=== PATIENT | female | born 1985 | race Caucasian/White ===

== ENCOUNTER 2017-01-08 05:23 | Inpatient (IN) | payer OTHER ==
--- NOTE | 2017-01-04 11:32 | PCM.LDHP ---
L&D History of Present Illness - General Date of Service: 01/08/17 Admit Problem/Dx: Admission Diagnosis/Problem Admission Diagnosis/Problem 01/04/17 11:16 39-0/7 week intrauterine , history previous section with desire for repeat section Source of Information: Patient History Limitations: Reports: No Limitations - History of Present Illness Introduction:: Penny is a 31-year-old 3 para 2002 white female who is admitted for elective repeat section. The procedure, risks, benefits, alternatives of care including attempted her all discussed in detail with the patient. She appears to understand, wishes to proceed and has signed the consent. 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 This is supported by ultrasound done on 05/29/2016 and again on 09/07/2016. Her previous obstetric history shows menarche at 9, cycles q. 28 days, duration approximately 5 days. Not on any control at the time conception. LMP 04/10. Previous deliveries include a male infant born 07/21/2012 at 41 weeks gestational age after 10 hours of labor. 6 lbs. 11 oz. born via primary section done for failure to progress. Child's name is Raghav. Second baby was born on 11/12/2014 at 40-1/7 weeks gestational age after 7 hours of labor-8 lbs. 2 oz.-female-vaginal after section. [facility]. Child's name is a Bozena Martínez. Patient's course has been relatively unremarkable. She had her first visit on 06/27/2016 at 11 weeks and 1 day. She had regular visits and showed good fundal height growth. Her weight increased from 171.8 pounds at first visit to 190 pounds at last visit for approximately an 18 pound weight gain. Her vital signs were stable throughout the course. Patient declined STD testing. She declined that Tdap. She has mild thyroid enlargement. She is heterozygous for him THFR gene mutation. Had RhoGAM given at the end of second trimester, specifically 10/24/2016. laboratory testing: Blood is a negative with positive antibody screen secondary to passive antibody secondary to RhoGAM administered early in . She had a platelet count of first visit of 206. Pap smear was normal. She is rubella immune. Free T4 was normal at 1.21 and free T3 was normal at 3.4 a. TSH was normal at 0.309. Free T4 on 10/23/2016 was normal at 1.04 and free T3 is normal at 2.93. Patient had a negative group B strep screen. Allergies: Adhesive tape Indications: 1. Diclegis 10-10 mg oral tablets delayed release 2. Vitamin C oral tablets chewable-1 daily 3. Probiotic oral capsule one daily 4. CVS 28-0.8 mg oral tablets-daily 5. B6 100 mg oral tablet daily 6. Digestive enzymes daily 7. Iron tablets 325 mg ferrous sulfate-daily 8. Vitamin D liquid 500 international units daily 9. Magnesium tablets 1 tablet daily Past medical history: 1. Vaginal after section 2. Goiter with abnormal TSH 3. Hiatal hernia 4. depression history 5. MTHFR defect Past surgical history: 1. in 2011 2. Was G. extraction 2002 3. Lymphectomy 2010 Family history: maternal grandmother and one sister with thalassemia. No anesthesia, bleeding, blood clot in her problems her related regarding her family history. Social history: Patient is , lives in [place], is self-employed. is [place]. She does not use any significant loss of alcohol, drugs or tobacco. Review of systems: Skin-no lesions HEENT-no concerns Lungs-no complaints Cardiovascular-no chest pain, shortness of breath or exercise intolerance Breasts-changes consistent with GI-appetite and no problems, takes digestive enzymes -changes associated with Neuro-no concerns Musculoskeletal-minimal swelling with . Physical exam: In general the patient is a well-developed, well-nourished pleasant female stated age in no acute distress. On last evaluation in clinic her weight was 190 pounds an increased approximately 18 pounds since the first visit. Blood pressure is 106/53. Height was 5 feet 9 inches. Skin is warm and dry without lesions. HEENT, neck and back are within normal limits Lungs are clear with good breath sounds in all lung jenkins. Cardiovascular exam shows regular rate and rhythm. Breast exam is deferred, was done at first visit of the normal. Patient has nursed in the past and desires to nurse this . Abdomen is protuberant the . Fundal height is 38 cm, baby in vertex presentation. Cervical exam shows 2+ centimeters, 80% effaced, soft, midposition, -3 station, cephalic presentation. Extremities and neurological exam are within normal limits. No significant edema is noted at this time. - Related Data Allergies/Adverse Reactions: Allergies Allergy/AdvReac Type Severity Reaction Status Date / Time No Known Allergies Allergy Verified 11/12/14 11:13 Home Medications: Home Meds Benzocaine/Menthol [Dermoplast Pain Relief [place]] 1 applic TOP ASDIRECTED PRN # 30 canister 11/14/14 [Rx] Docusate Sodium [Colace] 100 mg PO BID PRN #20 cap 11/14/14 [Rx] Ibuprofen [Motrin] 600 mg PO Q4H PRN #30 tablet 11/14/14 [Rx] Lanolin [Lansinoh HPA] 1 applic TOP ASDIRECTED PRN #30 crm 11/14/14 [Rx] Witch Dayana [Tucks] 1 pad TOP ASDIRECTED PRN #30 pad 11/14/14 [Rx] Social & Family History - Tobacco Use Smoking Status *Q: Never Smoker - Recreational Drug Use Recreational Drug Use: No H&P Review of Systems - Review of Systems: Review Of Systems: See Below L&D Exam - Exam Exam: See Below - Vital Signs Weight: 92.986 kg Problem List Initiated/Reviewed/Updated: Yes Assessment/Plan Comment:: Assessment: 1. Term intrauterine at 39-0/7 weeks, history of previous section with desire for repeat section 2. Group B strep screen negative 3. Patient plans to nurse 4. MTHFR positive 5. History of depression with previous 6. History of goiter, or function studies within normal limits on last evaluation Plan: 1. Repeat lower uterine segment transverse section through Pfannenstiel skin incision under spinal block. Procedure, risks, benefits, alternatives of care including attempt at all discussed the patient. She appears to understand, wishes to proceed. She signed consent. Surgery is scheduled for 01/08/[address] [facility] 2. DVT prophylaxis with SCDs 3. Infection prophylaxis with Ancef 2 g IV preop 4. Routine preoperative labs including CBC, urinalysis, type and screen.
[2017-01-08] MEDS ORDERED: Metoclopramide 10 MG/2 ML SDV IVPUSH ONE (05:51)
[2017-01-08] MEDS ORDERED: Sodium Chloride 0.9% 10 ML Syringe FLUSH PRN (05:51)
[2017-01-08] MEDS ORDERED: Citric Acid/Sodium Citrate Solution 30 ML Cup PO ONE (05:51)
[2017-01-08] MEDS: Lactated Ringers 1,000 ML IV SCH ×2 (06:09→06:47)
[2017-01-08] MEDS ORDERED: Bupivacaine 0.5% 30 ML SDV ONE (06:31)
[2017-01-08] MEDS ORDERED: Ondansetron 4 MG/2 ML SDV ONE (06:39)
[2017-01-08] MEDS ORDERED: Ketorolac 30 MG/ML SDV ONE (06:39)
[2017-01-08] MEDS ORDERED: Phenylephrine/Normal Saline 100 MCG/ML 10 ML Syringe ONE (06:39)
[2017-01-08] MEDS ORDERED: ceFAZolin 1 GM Vial ONE (06:39)
[2017-01-08] MEDS ORDERED: Morphine PF 10 MG/10 ML SDV ONE (06:41)
--- NOTE | 2017-01-08 06:56 | PCM.PREANE ---
Preanesthetic Assessment - Anesthesia/Transfusion/Family Hx Anesthesia History: Prior Anesthesia Without Reaction Family History of Anesthesia Reaction: No Transfusion History: No Prior Transfusion(s) - Review of Systems General: No Symptoms Pulmonary: No Symptoms Cardiovascular: Palpitations (related to thyroid issues ) Gastrointestinal: Other (hiatal hernia, GERD ) Neurological: Other (13 Ora migraines during controled with tylenol and caffeine ) Other: Reports: None, Thyroid Problems (hyperthyroidism during , hashimotos when not ) - Physical Assessment NPO Status Date: 01/07/17 NPO Status Time: 22:00 O2 Sat by Pulse Oximetry: 96 Respiratory Rate: 18 Vital Signs: Last Vital Signs Temp 36.9 C 01/08/17 05:37 Pulse 83 01/08/17 05:37 Resp 18 01/08/17 05:37 BP 105/73 01/08/17 05:37 Pulse Ox 96 01/08/17 05:37 Height: 1.75 m Weight: 86.183 kg ASA Class: 2 Mental Status: Alert & Oriented x3 Airway Class: Mallampati = 2 Dentition: Reports: Normal Dentition Thyro-Mental Finger Breadths: 3 Mouth Opening Finger Breadths: 3 ROM/Head Extension: Full Lungs: Clear to auscultation, Normal respiratory effort Cardiovascular: Regular Rate, Regular Rhythm - Lab Values: Laboratory Last Values WBC 8.86 K/mm3 (3.98-10.04) 01/08/17 05:45 RBC 4.08 M/mm3 (3.98-5.22) 01/08/17 05:45 Hgb 11.6 gm/L (11.2-15.7) 01/08/17 05:45 Hct 35.4 % (34.1-44.9) 01/08/17 05:45 MCV 86.8 fl (79.4-94.8) 01/08/17 05:45 MCH 28.4 pg (25.6-32.2) 01/08/17 05:45 MCHC 32.8 g/dl (32.2-35.5) 01/08/17 05:45 RDW Std Deviation 41.3 fL (36.4-46.3) 01/08/17 05:45 Plt Count 157 K/mm3 (182-369) L 01/08/17 05:45 MPV 11.2 fl (9.4-12.3) 01/08/17 05:45 Neut % (Auto) 68.8 % (34.0-71.1) 01/08/17 05:45 Lymph % (Auto) 23.4 % (19.3-51.7) 01/08/17 05:45 [place] % (Auto) 5.9 % (4.7-12.5) 01/08/17 05:45 Eos % (Auto) 1.2 (0.7-5.8) 01/08/17 05:45 Baso % (Auto) 0.2 % (0.1-1.2) 01/08/17 05:45 Neut # (Auto) 6.10 K/mm3 (1.56-6.13) 01/08/17 05:45 Lymph # (Auto) 2.07 K/mm3 (1.18-3.74) 01/08/17 05:45 [place] # (Auto) 0.52 K/mm3 (0.24-0.36) H 01/08/17 05:45 Eos # (Auto) 0.11 K/mm3 (0.04-0.36) 01/08/17 05:45 Baso # (Auto) 0.02 K/mm3 (0.01-0.08) 01/08/17 05:45 Blood Type A NEGATIVE 01/08/17 05:45 - Allergies Allergies/Adverse Reactions: Allergies Allergy/AdvReac Type Severity Reaction Status Date / Time adhesive tape Allergy Rash Verified 01/08/17 05:55 - Blood Blood Available: No Product(s) Available: None - Anesthesia Plan Pre-Op Medication Ordered: None - Acknowledgements Anesthesia Type Planned: Spinal (with duramorph ) Pt an Appropriate Candidate for the Planned Anesthesia: Yes Alternatives and Risks of Anesthesia Discussed w Pt/Guardian: Yes Pt/Guardian Understands and Agrees with Anesthesia Plan: Yes PreAnesthesia Questionnaire Cardiovascular History: Reports: None Respiratory History: Reports: None Gastrointestinal History: Reports: Hiatal Hernia 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: , Other (See Below) Other OB/BYN History: hx of section/ Neurological History: Reports: Migraines Psychiatric History: Reports: Other (See Below) Other Psychiatric History: depression with first Endocrine/Metabolic History: Reports: Other (See Below) Other Endocrine/Metabolic History: abnormal tsh, goiter - SUBSTANCE USE Smoking Status *Q: Never Smoker Second Hand Smoke Exposure: No Recreational Drug Use History: No - HOME MEDS Home Medications: Home Meds Ferrous Sulfate [Iron] 325 mg PO DAILY 01/08/17 [History] Magnesium 200 mg PO DAILY 01/08/17 [History] PNV95/Ferrous Fumarate/FA [ Vitamin Tablet] 1 tab PO DAILY 01/08/17 [ History] - CURRENT (IN HOUSE) MEDS Current Meds: Current Medications Lactated Ringer's (Ringers, Lactated) 1,000 mls @ 125 mls/hr IV ASDIRECTED RUFINO Last Admin: 01/08/17 06:47 Dose: 125 mls/hr Oxytocin/Lactated Ringer's (Pitocin In Lr 10 Units/1,000 Ml) 10 unit in 1,000 mls @ 100 mls/hr IV ASDIRECTED [facility] Cefazolin Sodium/Dextrose 2 gm (/ Premix) 50 mls @ 100 mls/hr IV ONETIME ONE Stop: 01/08/17 08:29 Sodium Chloride (Saline Flush) 10 ml FLUSH ASDIRECTED PRN PRN Reason: Keep Vein Open Discontinued Medications Bupivacaine HCl (Marcaine 0.5%) Confirm Administered Dose 30 ml .ROUTE .STK-MED ONE Stop: 01/08/17 06:32 Cefazolin Sodium (Ancef) Confirm Administered Dose 2 gm .ROUTE .STK-MED ONE Stop: 01/08/17 06:40 Citric Acid/Sodium Citrate (Bicitra Solution) 30 ml PO ONETIME ONE Stop: 01/08/17 05:52 Ketorolac Tromethamine (Toradol) Confirm Administered Dose 30 mg .ROUTE .STK- MED ONE Stop: 01/08/17 06:40 Metoclopramide HCl (Reglan) 10 mg IVPUSH ONETIME ONE Stop: 01/08/17 05:52 Morphine Sulfate (Duramorph Pf) Confirm Administered Dose 10 mg .ROUTE .STK-MED ONE Stop: 01/08/17 06:42 Ondansetron HCl (Zofran) Confirm Administered Dose 4 mg .ROUTE .STK-MED ONE Stop: 01/08/17 06:40 Phenylephrine HCl (Phenylephrine In Ns 100 Mcg/Ml) Confirm Administered Dose 1 mg .ROUTE .STK-MED ONE Stop: 01/08/17 06:40
[2017-01-08] MEDS ORDERED: Lanolin 100% Cream 7 GM Tube TOP PRN (07:43)
[2017-01-08] MEDS ORDERED: diphenhydrAMINE 50 MG/ML SDV IVPUSH PRN ×2 (07:43→08:48)
[2017-01-08] MEDS ORDERED: Ondansetron 4 MG/2 ML SDV IV PRN (07:43)
[2017-01-08] MEDS ORDERED: ePHEDrine 50 MG/ML SDV IVPUSH PRN (07:43)
[2017-01-08] MEDS ORDERED: Naloxone 0.4 MG/ML SDV IVPUSH PRN (07:43)
[2017-01-08] MEDS ORDERED: Dextrose 5%-Lactated Ringers 1,000 ML IV SCH (07:45)
[2017-01-08] MEDS ORDERED: Dextrose 5%-0.45% NaCl 1,000 ML IV SCH (07:45)
[2017-01-08] MEDS ORDERED: Oxytocin/Lactated Ringers 10 UNIT/1,000 ML BAG IV SCH (08:00)
[2017-01-08] MEDS ORDERED: ceFAZolin 2 GM in Premix Bag 1 BAG IV ONE (08:00)
[2017-01-08] MEDS ORDERED: Lactated Ringers 1,000 ML ONE ×2 (08:38)
[2017-01-08] MEDS ORDERED: Meperidine PF 50 MG/ML Syringe IVPUSH PRN (08:48)
[2017-01-08] MEDS ORDERED: Ondansetron 4 MG/2 ML SDV IVPUSH PRN (08:48)
--- NOTE | 2017-01-08 08:50 | PCM.OPNOTE ---
- General Post-Op/Procedure Note Date of Surgery/Procedure: 01/08/17 Operative Procedure(s): repeat lower uterine segment transverse section through Pfannenstiel skin incision Findings: minimal scarring from the anterior abdominal wall to the anterior uterus from previous section. Uterus tubes and ovaries otherwise were consistent with normal term . Is in a vertex presentation, amniotic fluid was clear. Lower uterine segment was thick and normal in appearance. The baby was a male born at 0807 hours. scores were 8 and 9. Weight was 7 lbs. 0 oz. There was a nuchal cord x2 with 1 Loop underneath the baby's right arm. Pre Op Diagnosis: 39 week intrauterine , history of previous sections desire for repeat sec Post-Op Diagnosis: Same with delivery of a 7 lbs. 0 oz. male infant Apgars of 8 and 9 at 0807 hours on 01/08/2017 Anesthesia Technique: Spinal Other Anesthesia Type: local with Marcaine 0.5%-20 cc Primary Surgeon: Leonid Mata Secondary Surgeon: Luke Guan Anesthesia Provider: Garo Flanagan Fluid Replacement, Intraop: 1,500 Output, Urine Amount: 150 EBL in mLs: 600 Drain/Tube Comments:: indwelling bladder catheter Complications: None Condition: Good Free Text/Narrative:: Intake & Output 01/07/17 01/08/17 01/08/17 22:59 06:59 14:59 Intake Total 1000 Balance 1000 surgery duration: 28 minutes Complications: None Procedure: Patient was transferred the room and placed in a sitting position. Spinal anesthesia was administered. After adequate anesthesia patient was placed in a supine position with a wedge under her right side to facilitate left lateral positioning. The patient was prepped and draped in usual fashion after Francisco catheter was placed. The anesthetic was checked and found to be adequate. Marcaine 0.5%-20 cc was infiltrated into the section incision site. The Pfannenstiel skin incision was then made carried down to skin subcutaneous and fascial layers. The fascia was then undermined superiorly and inferiorly to allow for adequate operating room. The recti muscles were midline and preperitoneal fat was bluntly dissected. Peritoneal cavity was entered longitudinally. The vesicouterine peritoneum was then incised transversely and bladder flap was developed. Myometrium was incised transversely to the level of the amniotic sac. This incision was extended bilaterally in a blunt fashion. The amniotic sac was then ruptured resulting clear amniotic fluid. A hand is placed into the lower uterine segment and the baby's head was brought forth through the incision. The baby was completely delivered using with fundal pressure in a routine fashion. The nose and mouth were bulb suctioned. Baby's cord was clamped x2 cut and baby was handed off to attending outreach rep Dr. BUTLER. Placenta was expressed after cord blood was obtained. Uterus was then exteriorized to allow for easier closure. a left sided anterior uterine adhesions noted attached to the anterior abdominal wall. This was cauterized and taken down. No bowel or other vital structures were called with this adhesion.The cervix was assessed and found to be dilated adequately to allow egress of blood. The uterus was closed in 2 layers. The first layer a running locked suture of 0 Monocryl, the second layer a running locked vertical mattress suture of 0 Monocryl. additional blocks type stitch was placed an incision for hemostasis. Hemostasis confirmed at this time. Sponge, instrument, needle counts are correct. The uterus was returned to the abdominal cavity and lateral gutters were cleared of blood. Once again sponge, needle counts are correct. The anterior abdominal wall was closed with a #1 PDS suture from angle to angle. The subcutaneous area was found to be free of any bleeders. Skin was closed with a running subcuticular stitch of 3-0 Monocryl in a vertical mattress suture fashion using a Golden needle. It was further approximated Prineo mesh and glue. It should be noted that patient received 2 g of Ancef preoperatively for infection prophylaxis and had Pitocin infused after delivery of the placenta to facilitate uterine contraction. She also had sequential compression stockings in place for DVT prophylaxis.
--- NOTE | 2017-01-08 08:51 | PCM.POSTAN ---
POST ANESTHESIA ASSESSMENT - MENTAL STATUS Mental Status: alert, oriented - VITAL SIGNS Pulse Rate: 74 SaO2: 100 Resp Rate: 19 Blood Pressure: 108/59 Temperature: 35.9 C - RESPIRATORY Respiratory Status: respiratory rate WNL, airway patent, O2 saturation stable - CARDIOVASCULAR CV Status: pulse rate WNL, blood pressure stable - GASTROINTESTINAL GI Status: no symptoms - PAIN Pain Score: 0 - POST OP HYDRATION Hydration Status: adequate & stable
[2017-01-08] MEDS: Simethicone 80 MG Tab.Chew PO SCH ×3 (14:47→18:43)
[2017-01-08] MEDS: Ibuprofen 800 MG Tab PO PRN (14:47)
[2017-01-08] MEDS: Prenatal Multivitamin with Calcium/Folic Acid/Iron Tab PO SCH (14:47)
[2017-01-09] MEDS: Ibuprofen 800 MG Tab PO PRN ×3 (00:45→20:28)
[2017-01-09] MEDS: Simethicone 80 MG Tab.Chew PO SCH ×5 (00:48→23:59)
[2017-01-09] MEDS: Acetaminophen/oxyCODONE 325-5 MG Tab PO PRN ×4 (05:25→23:59)
--- NOTE | 2017-01-09 07:20 | PCM48HPAN ---
Post Anesthesia Note - EVALUATION WITHIN 48HRS OF ANESTHETIC Vital Signs in Normal Range: Yes Patient Participated in Evaluation: Yes Respiratory Function Stable: Yes Airway Patent: Yes Cardiovascular Function Stable: Yes Hydration Status Stable: Yes Pain Control Satisfactory: Yes Nausea and Vomiting Control Satisfactory: Yes Mental Status Recovered: Yes
[2017-01-09] MEDS: Docusate Sodium 100 MG Cap PO PRN ×2 (08:06→20:28)
[2017-01-09] MEDS: Prenatal Multivitamin with Calcium/Folic Acid/Iron Tab PO SCH (08:07)
--- NOTE | 2017-01-09 11:44 | PCM.SN ---
- Free Text/Narrative Note: Ramya has no complaints today. She is ambulating well, is voiding without concerns. She has minimal lochia. She is using Percocet and ibuprofen for pain. She is tolerating her diet well. Patient is afebrile, vital signs stable. Lungs are clear with good breath sounds in all jenkins. Abdomen is flat soft, nontender, without masses. Incision healing well. Legs nontender. CBC shows a hemoglobin to be mildly decreased with white count and platelets normal. Findings consistent with timeframe Assessment: Postoperative day one status post [id number] well. Plan: Increase diet, activity and otherwise routine care.
[2017-01-10] MEDS: Ibuprofen 800 MG Tab PO PRN ×3 (04:30→20:45)
[2017-01-10] MEDS: Prenatal Multivitamin with Calcium/Folic Acid/Iron Tab PO SCH ×2 (08:42→08:44)
[2017-01-10] MEDS: Simethicone 80 MG Tab.Chew PO SCH ×3 (08:42→18:55)
[2017-01-10] MEDS: Docusate Sodium 100 MG Cap PO PRN ×2 (08:42→20:50)
[2017-01-10] MEDS: Acetaminophen/oxyCODONE 325-5 MG Tab PO PRN ×3 (08:42→18:55)
--- NOTE | 2017-01-10 10:59 | PCM.SN ---
- Free Text/Narrative Note: The patient is doing well today. Nursing was going on, lochia is minimal and patient ambulate well. Voiding without problems. Patient is afebrile, vital signs stable. Abdomen is flat, soft, nontender. The incision appears to be dry and intact. Legs nontender. Assessment: Post operative date 2-normal recovery Plan: Routine postoperative care, home tomorrow.
[2017-01-11] MEDS: Acetaminophen/oxyCODONE 325-5 MG Tab PO PRN ×2 (00:19→13:24)
[2017-01-11] MEDS: Simethicone 80 MG Tab.Chew PO SCH ×3 (00:19→13:24)
--- NOTE | 2017-01-11 09:02 | PCM.DCSUM1 ---
Discharge Summary - Hospital Course Free Text/Narrative:: [facility], [place] [facility] Post-Op/Procedure Note Patient Name: JO CHRISTY Date of : 81 Patient Status: Inpatient Attending Provider: Leonid Mata Date: 01/08/17 08:44 Initialization Date: 01/08/17 08:44 - General Post-Op/Procedure Note Date of Surgery/Procedure: 01/08/17 Operative Procedure(s): repeat lower uterine segment transverse section through Pfannenstiel skin incision Findings: minimal scarring from the anterior abdominal wall to the anterior uterus from previous section. Uterus tubes and ovaries otherwise were consistent with normal term . Is in a vertex presentation, amniotic fluid was clear. Lower uterine segment was thick and normal in appearance. The baby was a male born at 0807 hours. scores were 8 and 9. Weight was 7 lbs. 0 oz. There was a nuchal cord x2 with 1 Loop underneath the baby's right arm. Pre Op Diagnosis: 39 week intrauterine , history of previous sections desire for repeat sec Post-Op Diagnosis: Same with delivery of a 7 lbs. 0 oz. male Apgars of 8 and 9 at 0807 hours on 01/08/2017 Anesthesia Technique: Spinal Other Anesthesia Type: local with Marcaine 0.5%-20 cc Primary Surgeon: Leonid Mata Secondary Surgeon: Luke Guan Anesthesia Provider: Garo Flanagan Fluid Replacement, Intraop: 1,500 Output, Urine Amount: 150 EBL in mLs: 600 Drain/Tube Comments:: indwelling bladder catheter Complications: None Condition: Good Free Text/Narrative:: Intake & Output 01/07/17 01/08/17 01/08/17 22:59 06:59 14:59 Intake Total 1000 Balance 1000 surgery duration: 28 minutes Complications: None Procedure: Patient was transferred the room and placed in a sitting position. Spinal anesthesia was administered. After adequate anesthesia patient was placed in a supine position with a wedge under her right side to facilitate left lateral positioning. The patient was prepped and draped in usual fashion after Francisco catheter was placed. The anesthetic was checked and found to be adequate. Marcaine 0.5%-20 cc was infiltrated into the section incision site. The Pfannenstiel skin incision was then made carried down to skin subcutaneous and fascial layers. The fascia was then undermined superiorly and inferiorly to allow for adequate operating room. The recti muscles were midline and preperitoneal fat was bluntly dissected. Peritoneal cavity was entered longitudinally. The vesicouterine peritoneum was then incised transversely and bladder flap was developed. Myometrium was incised transversely to the level of the amniotic sac. This incision was extended bilaterally in a blunt fashion. The amniotic sac was then ruptured resulting clear amniotic fluid. A hand is placed into the lower uterine segment and the baby's head was brought forth through the incision. The baby was completely delivered using with fundal pressure in a routine fashion. The nose and mouth were bulb suctioned. Baby's cord was clamped x2 cut and baby was handed off to attending agricultural equipment operator Dr. BUTLER. Placenta was expressed after cord blood was obtained. Uterus was then exteriorized to allow for easier closure. a left sided anterior uterine adhesions noted attached to the anterior abdominal wall. This was cauterized and taken down. No bowel or other vital structures were called with this adhesion.The cervix was assessed and found to be dilated adequately to allow egress of blood. The uterus was closed in 2 layers. The first layer a running locked suture of 0 Monocryl, the second layer a running locked vertical mattress suture of 0 Monocryl. additional blocks type stitch was placed an incision for hemostasis. Hemostasis confirmed at this time. Sponge, instrument, needle counts are correct. The uterus was returned to the abdominal cavity and lateral gutters were cleared of blood. Once again sponge, needle counts are correct. The anterior abdominal wall was closed with a #1 PDS suture from angle to angle. The subcutaneous area was found to be free of any bleeders. Skin was closed with a running subcuticular stitch of 3-0 Monocryl in a vertical mattress suture fashion using a Golden needle. It was further approximated Prineo mesh and glue. It should be noted that patient received 2 g of Ancef preoperatively for infection prophylaxis and had Pitocin infused after delivery of the placenta to facilitate uterine contraction. She also had sequential compression stockings in place for DVT prophylaxis. HPI Initial Comments: [facility], [place] [facility] Post-Op/Procedure Note Patient Name: JO CHRISTY Date of : 81 Patient Status: Inpatient Attending Provider: Leonid Mata Date: 01/08/17 08:44 Initialization Date: 01/08/17 08:44 - General Post-Op/Procedure Note Date of Surgery/Procedure: 01/08/17 Operative Procedure(s): repeat lower uterine segment transverse section through Pfannenstiel skin incision Findings: minimal scarring from the anterior abdominal wall to the anterior uterus from previous section. Uterus tubes and ovaries otherwise were consistent with normal term . Is in a vertex presentation, amniotic fluid was clear. Lower uterine segment was thick and normal in appearance. The baby was a male born at 0807 hours. scores were 8 and 9. Weight was 7 lbs. 0 oz. There was a nuchal cord x2 with 1 Loop underneath the baby's right arm. Pre Op Diagnosis: 39 week intrauterine , history of previous sections desire for repeat sec Post-Op Diagnosis: Same with delivery of a 7 lbs. 0 oz. male Apgars of 8 and 9 at 0807 hours on 01/08/2017 Anesthesia Technique: Spinal Other Anesthesia Type: local with Marcaine 0.5%-20 cc Primary Surgeon: Leonid Mata Secondary Surgeon: Luke Guan Anesthesia Provider: Garo Flanagan Fluid Replacement, Intraop: 1,500 Output, Urine Amount: 150 EBL in mLs: 600 Drain/Tube Comments:: indwelling bladder catheter Complications: None Condition: Good Free Text/Narrative:: Intake & Output 01/07/17 01/08/17 01/08/17 22:59 06:59 14:59 Intake Total 1000 Balance 1000 surgery duration: 28 minutes Complications: None Procedure: Patient was transferred the room and placed in a sitting position. Spinal anesthesia was administered. After adequate anesthesia patient was placed in a supine position with a wedge under her right side to facilitate left lateral positioning. The patient was prepped and draped in usual fashion after Francisco catheter was placed. The anesthetic was checked and found to be adequate. Marcaine 0.5%-20 cc was infiltrated into the section incision site. The Pfannenstiel skin incision was then made carried down to skin subcutaneous and fascial layers. The fascia was then undermined superiorly and inferiorly to allow for adequate operating room. The recti muscles were midline and preperitoneal fat was bluntly dissected. Peritoneal cavity was entered longitudinally. The vesicouterine peritoneum was then incised transversely and bladder flap was developed. Myometrium was incised transversely to the level of the amniotic sac. This incision was extended bilaterally in a blunt fashion. The amniotic sac was then ruptured resulting clear amniotic fluid. A hand is placed into the lower uterine segment and the baby's head was brought forth through the incision. The baby was completely delivered using with fundal pressure in a routine fashion. The nose and mouth were bulb suctioned. Baby's cord was clamped x2 cut and baby was handed off to attending agricultural equipment operator Dr. BUTLER. Placenta was expressed after cord blood was obtained. Uterus was then exteriorized to allow for easier closure. a left sided anterior uterine adhesions noted attached to the anterior abdominal wall. This was cauterized and taken down. No bowel or other vital structures were called with this adhesion.The cervix was assessed and found to be dilated adequately to allow egress of blood. The uterus was closed in 2 layers. The first layer a running locked suture of 0 Monocryl, the second layer a running locked vertical mattress suture of 0 Monocryl. additional blocks type stitch was placed an incision for hemostasis. Hemostasis confirmed at this time. Sponge, instrument, needle counts are correct. The uterus was returned to the abdominal cavity and lateral gutters were cleared of blood. Once again sponge, needle counts are correct. The anterior abdominal wall was closed with a #1 PDS suture from angle to angle. The subcutaneous area was found to be free of any bleeders. Skin was closed with a running subcuticular stitch of 3-0 Monocryl in a vertical mattress suture fashion using a Golden needle. It was further approximated Prineo mesh and glue. It should be noted that patient received 2 g of Ancef preoperatively for infection prophylaxis and had Pitocin infused after delivery of the placenta to facilitate uterine contraction. She also had sequential compression stockings in place for DVT prophylaxis. Brief History: [facility], [place] [facility] . Post-Op/Procedure Note. Patient Name: JO CHRISTYMDedical Record Number: [id number]. Date of : Patient Status: Inpatient. Attending Provider: Leonid Mata Number : [id number]. Date: 01/08/17 08:44Initialization Date: 01/08/17 08:44. - General Post-Op/Procedure Note. Date of Surgery/Procedure: 01/08/17. Operative Procedure(s): repeat lower uterine segment transverse section through Pfannenstiel skin incision. Findings: minimal scarring from the anterior abdominal wall to the anterior uterus from previous section. Uterus tubes and ovaries otherwise were consistent with normal term . Is in a vertex presentation, amniotic fluid was clear. Lower uterine segment was thick and normal in appearance. The baby was a male born at 0807 hours. scores were 8 and 9. Weight was 7 lbs. 0 oz. There was a nuchal cord x2 with 1 Loop underneath the baby's right arm. Pre Op Diagnosis: 39 week intrauterine , history of previous sections desire for repeat sec. Post-Op Diagnosis: Same with delivery of a 7 lbs. 0 oz. male infant Apgars of 8 and 9 at 0807 hours on 01/08/2017. Anesthesia Technique: Spinal. Other Anesthesia Type: local with Marcaine 0.5%-20 cc. Primary Surgeon: Leonid Mata. Secondary Surgeon: Luke Guan. Anesthesia Provider: Garo Flanagan. Fluid Replacement, Intraop: 1,500. Output, Urine Amount: 150. EBL in mLs: 600. Drain/Tube Comments:: indwelling bladder catheter. Complications: None. Condition: Good. Free Text/Narrative: : Intake & Output. 01/07/1705. [id number]. Intake [id number]. [id number]. surgery duration: 28 minutes. Complications: None. Procedure: Patient was transferred the room and placed in a sitting position. Spinal anesthesia was administered. After adequate anesthesia patient was placed in a supine position with a wedge under her right side to facilitate left lateral positioning. The patient was prepped and draped in usual fashion after Francisco catheter was placed. The anesthetic was checked and found to be adequate. Marcaine 0.5%-20 cc was infiltrated into the section incision site. The Pfannenstiel skin incision was then made carried down to skin subcutaneous and fascial layers. The fascia was then undermined superiorly and inferiorly to allow for adequate operating room. The recti muscles were midline and preperitoneal fat was bluntly dissected. Peritoneal cavity was entered longitudinally. The vesicouterine peritoneum was then incised transversely and bladder flap was developed. Myometrium was incised transversely to the level of the amniotic sac. This incision was extended bilaterally in a blunt fashion. The amniotic sac was then ruptured resulting clear amniotic fluid. A hand is placed into the lower uterine segment and the baby's head was brought forth through the incision. The baby was completely delivered using with fundal pressure in a routine fashion. The nose and mouth were bulb suctioned. Baby's cord was clamped x2 cut and baby was handed off to attending agricultural equipment operator Dr. BUTLER. Placenta was expressed after cord blood was obtained. Uterus was then exteriorized to allow for easier closure. a left sided anterior uterine adhesions noted attached to the anterior abdominal wall. This was cauterized and taken down. No bowel or other vital structures were called with this adhesion.The cervix was assessed and found to be dilated adequately to allow egress of blood. The uterus was closed in 2 layers. The first layer a running locked suture of 0 Monocryl, the second layer a running locked vertical mattress suture of 0 Monocryl. additional blocks type stitch was placed an incision for hemostasis. Hemostasis confirmed at this time. Sponge, instrument, needle counts are correct. The uterus was returned to the abdominal cavity and lateral gutters were cleared of blood. Once again sponge, needle counts are correct. The anterior abdominal wall was closed with a #1 PDS suture from angle to angle. The subcutaneous area was found to be free of any bleeders. Skin was closed with a running subcuticular stitch of 3-0 Monocryl in a vertical mattress suture fashion using a Golden needle. It was further approximated Prineo mesh and glue. It should be noted that patient received 2 g of Ancef preoperatively for infection prophylaxis and had Pitocin infused after delivery of the placenta to facilitate uterine contraction. She also had sequential compression stockings in place for DVT prophylaxis. - Discharge Data Discharge Date: 01/11/17 Discharge Disposition: Home, Self-Care 01 Condition: Good - Discharge Diagnosis/Problem(s) (1) 39 weeks gestation of SNOMED Code(s): 54121821 ICD Code: Z3A.39 - 39 WEEKS GESTATION OF Status: Acute Current Visit: Yes (2) H/O section complicating SNOMED Code(s): 470962178, 054551931 ICD Code: O34.219 - MATERNAL CARE FOR UNSP TYPE SCAR FROM PREVIOUS DEL Status: Acute Current Visit: Yes (3) Cord entanglement, delivered, current hospitalization SNOMED Code(s): 94838155 ICD Code: O69.82X0 - LABOR AND DEL COMP BY OTH CORD ENTANGLE, W/O COMPRSN, UNSP Status: Acute Current Visit: Yes - Patient Summary/Data Operative Procedure(s) Performed: repeat lower uterine segment transverse section through Pfannenstiel skin incision Complications: none Consults: none Hospital Course: uneventful - Patient Instructions Diet: Heart Healthy Diet Driving: Do Not Drive (x2 weeks) Showering/Bathing: May Shower, No Tub Bathing/Swimming (x6 weeks) Wound/Incision Care: Keep Operative Site/Wound Site Clean and Dry Notify Provider of: Fever, Increased Pain, Swelling and Redness, Drainage, Nausea and/or Vomiting - Discharge Plan Prescriptions/Med Rec: Acetaminophen/oxyCODONE [Percocet 325-5 MG] 1 tab PO Q6H PRN #30 tablet PRN Reason: Pain Ibuprofen [IJD: Ibuprofen] 600 mg PO Q6H PRN #50 tablet PRN Reason: Pain Metoclopramide [Reglan] 10 mg PO Q8H #60 tablet Home Medications: Home Meds Ferrous Sulfate [Iron] 325 mg PO DAILY 01/08/17 [History] Magnesium 200 mg PO DAILY 01/08/17 [History] PNV95/Ferrous Fumarate/FA [ Vitamin Tablet] 1 tab PO DAILY 01/08/17 [ History] Acetaminophen/oxyCODONE [Percocet 325-5 MG] 1 tab PO Q6H PRN #30 tablet [Rx] Docusate Sodium [Colace] 100 mg PO Q12H PRN #0 cap 01/11/17 [Rx] Ibuprofen [IJD: Ibuprofen] 600 mg PO Q6H PRN #50 tablet 01/11/17 [Rx] Metoclopramide [Reglan] 10 mg PO Q8H #60 tablet 01/11/17 [Rx] Simethicone 80 mg PO PCBED tab.chew 01/11/17 [Rx] Referrals: Leonid Mata MD [Primary Care Provider] - (4 weeks) - Discharge Summary/Plan Comment DC Time >30 min.: No - Patient Data Vitals - Most Recent: Last Vital Signs Temp 98.1 F 01/11/17 06:24 Pulse 82 01/11/17 06:24 Resp 16 01/11/17 06:24 BP 116/69 01/11/17 06:24 Pulse Ox 100 01/11/17 06:24 Weight - Most Recent: 190 lb I&O - Last 24 hours: Intake & Output 01/10/17 01/11/17 01/11/17 22:59 06:59 14:59 Intake Total 120 Balance 120 Med Orders - Current: Current Medications Diphenhydramine HCl (Benadryl) 25 mg IVPUSH Q6H PRN PRN Reason: Itching or Nausea Diphenhydramine HCl (Benadryl) 25 mg IVPUSH Q6H PRN PRN Reason: Pruritis Docusate Sodium (Colace) 100 mg PO Q12H PRN PRN Reason: Constipation Last Admin: 01/10/17 20:50 Dose: 100 mg Emollient Ointment (Lansinoh Hpa) 0 gm TOP ASDIRECTED PRN PRN Reason: Sore Nipples Ephedrine Sulfate (Ephedrine Sulfate) 5 mg IVPUSH SEECOMMENT PRN PRN Reason: Other Lactated Ringer's (Ringers, Lactated) 1,000 mls @ 125 mls/hr IV ASDIRECTED [facility] Last Admin: 01/08/17 06:47 Dose: 125 mls/hr Oxytocin/Lactated Ringer's (Pitocin In Lr 10 Units/1,000 Ml) 10 unit in 1,000 mls @ 100 mls/hr IV ASDIRECTED [facility] Dextrose/Sodium Chloride (Dextrose 5%-1/2 Ns) 1,000 mls @ 125 mls/hr IV ASDIRECTED RUFINO Ibuprofen (Motrin) 800 mg PO Q8H PRN PRN Reason: mild pain or fever Last Admin: 01/10/17 20:45 Dose: 800 mg Naloxone HCl (Narcan) 0.1 mg IVPUSH SEECOMMENT PRN PRN Reason: Respiratory Depression Ondansetron HCl (Zofran) 4 mg IV Q4H PRN PRN Reason: Nausea/Vomiting Oxycodone/Acetaminophen (Percocet 325-5 Mg) 2 tab PO Q4H PRN PRN Reason: Pain (moderate 4-6) Last Admin: 01/11/17 00:19 Dose: 1 tab Prenat Multivit/[place]/Iron/Folic Ac ( Plus Iron) 1 each PO DAILY [facility] Last Admin: 01/10/17 08:44 Dose: Not Given Simethicone (Simethicone) 80 mg PO PCBED [facility] Last Admin: 01/11/17 00:19 Dose: 80 mg Sodium Chloride (Saline Flush) 10 ml FLUSH ASDIRECTED PRN PRN Reason: Keep Vein Open Discontinued Medications Bupivacaine HCl (Marcaine 0.5%) Confirm Administered Dose 30 ml .ROUTE .STK-MED ONE Stop: 01/08/17 06:32 Last Admin: 01/08/17 08:05 Dose: 20 ml Cefazolin Sodium (Ancef) Confirm Administered Dose 2 gm .ROUTE .STK-MED ONE Stop: 01/08/17 06:40 Citric Acid/Sodium Citrate (Bicitra Solution) 30 ml PO ONETIME ONE Stop: 01/08/17 05:52 Last Admin: 01/08/17 06:54 Dose: 30 ml Cefazolin Sodium/Dextrose 2 gm (/ Premix) 50 mls @ 100 mls/hr IV ONETIME ONE Stop: 01/08/17 08:29 Last Admin: 01/08/17 19:34 Dose: Not Given Dextrose/Lactated Ringer's (Dextrose 5%-Lactated Ringers) 1,000 mls @ 125 mls/ hr IV ASDIRECTED [facility] Stop: 01/08/17 15:44 Last Admin: 01/08/17 14:00 Dose: 125 mls/hr Lactated Ringer's (Ringers, Lactated) Confirm Administered Dose 1,000 mls @ as directed .ROUTE .STK-MED ONE Stop: 01/08/17 08:39 Lactated Ringer's (Ringers, Lactated) Confirm Administered Dose 1,000 mls @ as directed .ROUTE .STK-MED ONE Stop: 01/08/17 08:39 Ketorolac Tromethamine (Toradol) Confirm Administered Dose 30 mg .ROUTE .STK- MED ONE Stop: 01/08/17 06:40 Meperidine HCl (Demerol) 12.5 mg IVPUSH ONETIME PRN PRN Reason: Shivering Stop: 01/08/17 16:00 Metoclopramide HCl (Reglan) 10 mg IVPUSH ONETIME ONE Stop: 01/08/17 05:52 Last Admin: 01/08/17 06:54 Dose: 10 mg Morphine Sulfate (Duramorph Pf) Confirm Administered Dose 10 mg .ROUTE .STK-MED ONE Stop: 01/08/17 06:42 Ondansetron HCl (Zofran) Confirm Administered Dose 4 mg .ROUTE .STK-MED ONE Stop: 01/08/17 06:40 Ondansetron HCl (Zofran) 4 mg IVPUSH ONETIME PRN PRN Reason: Nausea/Vomiting Stop: 01/08/17 18:00 Phenylephrine HCl (Phenylephrine In Ns 100 Mcg/Ml) Confirm Administered Dose 1 mg .ROUTE .STK-MED ONE Stop: 01/08/17 06:40 *Q Meaningful Use (DIS) - VTE *Q VTE Criteria *Q: - Stroke *Q Stroke Criteria *Q: - AMI *Q AMI Criteria *Q:
[2017-01-11] MEDS: Ibuprofen 800 MG Tab PO PRN (10:52)
[2017-01-11] MEDS: Docusate Sodium 100 MG Cap PO PRN (10:52)
[2017-01-11] MEDS: Prenatal Multivitamin with Calcium/Folic Acid/Iron Tab PO SCH (11:34)
[2017-01-11 13:25] VITALS: BP 108/68
== END 2017-01-11 14:45 | disposition home or self-care (01) | DRG 765 ==
LOC: JD.OB 05:23
PROVIDERS: ADMIT Obstetrics & Gynecology; ATTEND Obstetrics & Gynecology
PROC: 10D00Z1 Extraction of Products of Conception, Low, Open Approach (ICD-10-PCS; principal; 2017-01-08)
DX: O34.211 Maternal care for low transverse scar from previous cesarean delivery (principal); E72.12 Methylenetetrahydrofolate reductase deficiency; N85.8 Other specified noninflammatory disorders of uterus; Z3A.39 39 weeks gestation of pregnancy; Z37.0 Single live birth; Z91.09 Other allergy status, other than to drugs and biological substances; O99.284 Endocrine, nutritional and metabolic diseases complicating childbirth; E04.8 Other specified nontoxic goiter
CPT/HCPCS: 01961; 36415; 85025; 85461; 86850; 86870; 86900; 86901; 94762; A9270-GY; J0690; J1885; J2270; J2405; J2765; J2790; J7042; J7120

== ENCOUNTER 2020-01-09 07:27 | Emergency (ER) | payer OTHER ==
[2020-01-09 07:45] VITALS: BP 112/72; PULSE 70
[2020-01-09] MEDS ORDERED: Acetaminophen 325 MG Tab PO ONE (08:24)
--- NOTE | 2020-01-09 09:04 | EDM.PDOC ---
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 Sudden onset of sharp lower midline pelvic pain without radiation. Quite severe initially, she became mildly nauseated and dizzy which is all now better but still moderate lower midline pelvic pain not worse or better with movement. No spotting, bleeding or discharge. Last menstrual period about 3 wks ago. Has a merena IUD placed about 18 months ago. Hx of C section. No other prior abd surgeries. Pelvic Pain Score (Numeric/FACES): 5 - Related Data Allergies Allergy/AdvReac Type Severity Reaction Status Date / Time adhesive tape Allergy Rash Verified 01/09/20 07:44 Home Meds: Home Meds . [No Known Home Meds] 01/09/20 [History] Past Medical History Cardiovascular History: Reports: None Respiratory History: Reports: None Gastrointestinal History: Reports: Hiatal Hernia [employer] History: Reports: , Other (See Below) Other SCHO[employer]GE [employer] TE[employer]ER History: hx of section/ Neurological History: Reports: Migraines Psychiatric History: Reports: Other (See Below) Other Psychiatric History: depression with first Endocrine/Metabolic History: Reports: Other (See Below) Other Endocrine/Metabolic History: abnormal tsh, goiter Social & Family History - Family History Family Medical History: Noncontributory - Tobacco Use Smoking Status *Q: Never Smoker - Caffeine Use Caffeine Use: Reports: Soda, Tea ED ROS GENERAL - Review of Systems Review Of Systems: See Below Constitutional: Reports: Diaphoresis (mild, gone). Denies: Fever, Chills HEENT: Reports: No Symptoms Respiratory: Denies: Shortness of Breath Cardiovascular: Denies: Chest Pain GI/Abdominal: Reports: Abdominal Pain (lower mid pelvic), Nausea (gone). Denies : Diarrhea, Vomiting Musculoskeletal: Denies: Shoulder Pain, Arm Pain, Back Pain Skin: Reports: No Symptoms Neurological: Reports: Dizziness (gone) ED EXAM, RENAL/ - Physical Exam Exam: See Below General Appearance: Alert, Mild Distress Eye Exam: Bilateral Eye: PERRL Throat/Mouth: Normal Inspection Head: Atraumatic Neck: Supple Respiratory/Chest: No Respiratory Distress, Lungs Clear, Normal Breath Sounds Cardiovascular: Regular Rate, Rhythm GI/Abdominal: Soft, Tender (moderate lower midline tenderness, abd otherwise nontender). No: Guarding, Rebound Back Exam: No: CVA Tenderness (L), CVA Tenderness (R) Extremities: Normal Inspection, Normal Range of Motion Neurological: Alert, No Motor/Sensory Deficits Skin Exam: Warm, Dry, Normal Color Course - Vital Signs Last Recorded V/S: Last Vital Signs Temp 97.6 F 01/09/20 07:42 Pulse 70 01/09/20 07:42 Resp 16 01/09/20 07:42 BP 112/72 01/09/20 07:42 Pulse Ox 100 01/09/20 07:42 - Orders/Labs/Meds Labs: Laboratory Tests 01/09/20 01/09/20 01/09/20 Range/Units 08:24 08:24 08:25 WBC 5.96 (3.98-10.04) K/mm3 RBC 4.53 (3.98-5.22) M/mm3 Hgb 12.7 (11.2-15.7) gm/dl Hct 39.6 (34.1-44.9) % MCV 87.4 (79.4-94.8) fl MCH 28.0 (25.6-32.2) pg MCHC 32.1 L (32.2-35.5) g/dl RDW Std Deviation 41.3 (36.4-46.3) fL Plt Count 175 L (182-369) K/mm3 MPV 10.2 (9.4-12.3) fl Neut % (Auto) 70.8 (34.0-71.1) % Lymph % (Auto) 20.0 (19.3-51.7) % [place] % (Auto) 5.4 (4.7-12.5) % Eos % (Auto) 3.4 (0.7-5.8) Baso % (Auto) 0.2 (0.1-1.2) % Neut # (Auto) 4.23 (1.56-6.13) K/mm3 Lymph # (Auto) 1.19 (1.18-3.74) K/mm3 [place] # (Auto) 0.32 (0.24-0.36) K/mm3 Eos # (Auto) 0.20 (0.04-0.36) K/mm3 Baso # (Auto) 0.01 (0.01-0.08) K/mm3 HCG, Qual Negative (NEGATIVE) Urine Color Yellow (Yellow) Urine Appearance Clear (Clear) Urine pH 6.0 (5.0-8.0) Ur Specific [place] > or = 1.030 (1.005-1.030) Urine Protein Negative (Negative) Urine Glucose (UA) Negative (Negative) Urine Ketones Negative (Negative) Urine Occult Blood Negative (Negative) Urine Nitrite Negative (Negative) Urine Bilirubin Negative (Negative) Urine Urobilinogen 0.2 (0.2-1.0) Ur Leukocyte Esterase Negative (Negative) Meds: Medications Discontinued Medications Generic Name Dose Route Start Last Admin Trade Name Sridevi PRN Reason Stop Dose Admin Acetaminophen 975 mg 01/09/20 08:24 01/09/20 08:33 Tylenol PO 01/09/20 08:25 975 mg NOW ONE Administration - Re-Assessments/Exams Free Text/Narrative Re-Assessment/Exam: 01/09/20 11:42 pain much better at time of recheck awhile ago and at time of discharge a short time ago. US did show a small amt of free fluid in the culdesac likely related to ovulation. HCG neg, urine was neg, WBC good, discharge instr. as documented. Departure - Departure Time of Disposition: 11:30 Disposition: Home, Self-Care 01 Condition: Fair Clinical Impression: Pelvic pain - Discharge Information Instructions: Pelvic Pain, Female, [id number] Referrals: Leonid Mata MD [Primary Care Provider] - Forms: ED Department Discharge Additional Instructions: The pelvic pain you have had this morning is most likely related to ovulation. There is a small amount of fluid visible on the ultrasound which can be uncomfortable and irritating. Alternate tylenol and ibuprofen or aleve as needed. Follow up clinic if discomfort not resolving within 2 to 3 days as expected. Return to ED as needed if symptoms worsening in any way. Sepsis Event Note - Evaluation Sepsis Screening Result: No Definite Risk - Focused Exam Vital Signs: Vital Signs Temp Pulse Resp BP Pulse Ox 01/09/20 07:42 97.6 F 70 16 112/72 100 Date Exam was Performed: 01/09/20 Time Exam was Performed: 11:42
--- NOTE | 2020-01-09 11:08 | US ---
Pelvic ultrasound: Multiple real-time images were obtained transvaginally. Comparison: No prior pelvic imaging is available. Findings: Uterus is slightly retroflexed. Small amount of free fluid is seen. Hypoechoic and echogenic area is noted within the anterior uterine segment most likely representing residual change from prior section. Endometrial thickness is 4.7 mm. Small amount of fluid is seen within the endometrial cavity. Echogenic IUD present within the endometrial cavity. Ovaries show no cyst or solid abnormality. Impression: 1. Small amount of fluid within the endometrial cavity. IUD is present within the endometrial cavity. 2. Hypoechoic and echogenic area within the lower uterine segment most likely representing residual change from prior section. 3. Free fluid within the cul-de-sac most likely representing physiologic fluid from follicle rupture. Diagnostic code #2 This report was dictated in MDT
== END 2020-01-09 11:38 | disposition home or self-care (01) ==
LOC: JD.ED 07:27
DX: R10.2 Pelvic and perineal pain (principal); Z91.048 Other nonmedicinal substance allergy status
CPT/HCPCS: 36415; 76830; 81003; 84703; 85025; 99284; A9270; 99282

== ENCOUNTER 2022-06-05 15:42 | Emergency (ER) | payer BC, OTHER ==
[2022-06-05 18:59] VITALS: BP 117/74; PULSE 70
== END 2022-06-05 18:56 | disposition home or self-care (01) ==
LOC: JD.ED 15:42
DX: R00.2 Palpitations (principal); Z91.048 Other nonmedicinal substance allergy status
CPT/HCPCS: 36415; 80053; 83735; 84484; 85025; 93005; 93225; 93226; 99285

== ENCOUNTER 2022-06-09 11:27 | Emergency (ER) | payer BC ==
[2022-06-09 11:45] VITALS: BP 109/60; PULSE 68
[2022-06-09] MEDS ORDERED: Sodium Chloride 0.9% 10 ML Syringe FLUSH PRN (12:33)
[2022-06-09] MEDS ORDERED: Sodium Chloride 0.9% 1,000 ML IV ONE (12:34)
== END 2022-06-09 16:15 | disposition home or self-care (01) ==
LOC: JD.ED 11:27
DX: R00.2 Palpitations (principal); R79.9 Abnormal finding of blood chemistry, unspecified; R53.83 Other fatigue; Z91.048 Other nonmedicinal substance allergy status
CPT/HCPCS: 36415; 71045; 80053; 83735; 83880; 84484; 85025; 85610; 85730; 93005; 99285; J3490; J7030; 93010; 99284

== ENCOUNTER 2023-08-25 09:00 | Emergency (ER) | payer BC ==
[2023-08-25 09:13] VITALS: BP 118/75; PULSE 82
[2023-08-25 09:48] LABS: BASOPHILS PERCENT AUTO 0.8 % (0.0-1.0); EOSINOPHILS ABSOLUTE AUTO 0.2 K/mm3 (0.0-0.4); EOSINOPHILS PERCENT AUTO 2.9 % (0.0-6.0); HEMATOCRIT 39.2 % (37.0-47.0); HEMOGLOBIN 12.8 gm/dl (12.0-16.0); IMMATURE GRAN ABSOLUTE AUTO 0.01 K/mm3 (0.00-0.05); IMMATURE GRAN PERCENT AUTO 0.2 % (0.0-0.4); LYMPHOCYTES ABSOLUTE AUTO 1.4 K/mm3 (1.0-4.8); LYMPHOCYTES PERCENT AUTO 26.5 % (24.0-44.0); MEAN CORPUSCULAR HEMOGLOBIN 28.5 pg (28.0-32.0); MEAN CORPUSCULAR HGB CONC 32.7 g/dl (32.0-36.0); MEAN CORPUSCULAR VOLUME 87.3 fl (83.0-99.0); MEAN PLATELET VOLUME 9.6 fl (9.4-12.3); MONOCYTES ABSOLUTE AUTO 0.3 K/mm3 (0.0-0.8); MONOCYTES PERCENT AUTO 4.8 % (0.0-8.0); NEUTROPHILS ABSOLUTE AUTO 3.4 K/mm3 (1.8-7.7); NEUTROPHILS PERCENT AUTO 64.8 % (41.0-71.0); PLATELET COUNT,PLT 184 K/mm3 (150-400); RED BLOOD CELL COUNT 4.49 M/mm3 (4.10-5.30); WHITE BLOOD CELL COUNT,WBC 5.25 K/mm3 (3.9-11.3)
[2023-08-25 10:08] LABS: A/G RATIO 0.9 (1-2); ALBUMIN 3.4 g/dl (3.4-5.0); ANION GAP 8.8 (5-15); BILIRUBIN TOTAL 0.3 mg/dL (0.2-1.0); BUN/CREATININE RATIO 15.6 (14-18); CALCIUM 8.5 mg/dL (8.5-10.1); CREATININE 0.9 mg/dL (0.55-1.02); EST CRCL DRUG DOSING (CG) 90.75 mL/min; POTASSIUM,K 3.8 mEq/L (3.5-5.1)
== END 2023-08-25 12:52 | disposition home or self-care (01) ==
LOC: JD.ED 09:00
DX: R10.2 Pelvic and perineal pain (principal); Z91.048 Other nonmedicinal substance allergy status
CPT/HCPCS: 36415; 76830; 76830-26; 80053; 84703; 85025; 99284